=== PATIENT | male | born 1955 | race Caucasian/White ===

== ENCOUNTER 2023-10-21 16:28 | Inpatient (IN) | payer MEDICARE, MEDICAID ==
[2023-10-21] MEDS ORDERED: niCARdipine 25 MG/10 ML SDV ONE (16:33)
[2023-10-21] MEDS ORDERED: Dextrose 5% in Water 1,000 ML IV PRN (17:13)
[2023-10-21] MEDS ORDERED: Ondansetron ODT 4 MG TAB PO PRN (17:13)
[2023-10-21] MEDS ORDERED: Glucagon 1 MG/ML KIT IM PRN (17:13)
[2023-10-21] MEDS ORDERED: niCARdipine 40MG In NaCl 40 MG/200 ML BAG IVPB SCH (17:30)
[2023-10-21] MEDS: Insulin Regular 300 UNITS/3 ML VIAL SC SCH (18:43)
[2023-10-21] MEDS: niCARdipine 25 MG in Sodium Chloride 0.9% 250 ML 250 ML IVPB SCH ×2 (18:44→20:15)
[2023-10-21] MEDS ORDERED: Acetaminophen 650 MG Suppository PR PRN (19:15)
[2023-10-21] MEDS: Labetalol HCl 100 MG/20 ML VIAL SLOW IVP PRN (19:43)
[2023-10-21] MEDS: Acetaminophen 325 MG TAB PO PRN (19:44)
[2023-10-21 20:00] LABS: Hep C IgG Ab Reflex HepC Qnt S/CO (NonReactive); Hep C Index 16.07 S/CO (0-0.79)
[2023-10-21] MEDS: HumaLOG 300 UNITS/3 ML VIAL SC PRN (20:18)
[2023-10-21] MEDS: Morphine 2 MG/ML VIAL SLOW IVP PRN (22:17)
[2023-10-22] MEDS: Sodium Chloride 0.9% 1,000 ML IV SCH (00:09)
[2023-10-22 06:14] LABS: #Basophils 0.04 10x3/uL (0.0-0.2); %Basophils 0.5 % (0.0-1.0); %Eosinophils 1.4 % (0.0-10.0); %Lymphocytes 23.3 % (21.0-51.0); %Monocytes 5.3 % (0.0-10.0); %Neutrophils 69.3 % (42.0-75.0); Hematocrit 45.1 % (42.0-52.0); Hemoglobin 14.9 g/dL (14.0-18.0); Mean Corpuscular Volume 84.6 fL (78.0-98.0); Mean Platelet Volume 9.4 fL (7.4-10.4); Platelet Count 256 10x3/uL (130-400); RBC Distribution Width 13.8 % (11.5-14.5); Red Blood Cell (RBC) Count 5.33 mill/uL (4.70-6.10)
[2023-10-22 06:32] LABS: ALT (SGPT) 10 U/L (8-55); AST (SGOT) 12 U/L (5-34); Albumin 2.7 g/dL (3.4-4.8); Alkaline Phosphatase 89 U/L (40-110); Anion Gap 13 mmol/L (10-20); BUN (Urea Nitrogen) 18 mg/dL (8.4-25.7); Bilirubin, Total 0.4 mg/dL (0.2-1.2); Calc. Creatinine Clearance 92 mL/min (70-130); Calcium 8.7 mg/dL (7.8-10.44); Carbon Dioxide 24 mmol/L (23-31); Cardiac Risk 3.2 (Less than 4.5); Chloride 104 mmol/L (98-107); Cholesterol 105 mg/dl (< 200 Desired); Estimated GFR 98; Glucose 187 mg/dL (80-115); HDL Cholesterol 33 mg/dL (>60 Neg Risk); LDL Cholesterol, Calculated 62 mg/dL; Potassium 3.7 mmol/L (3.5-5.1); Protein, Total 6.7 g/dL (5.8-8.1); Sodium 137 mmol/L (136-145); Triglycerides 51 mg/dL (Less than 150)
[2023-10-22 06:43] LABS: Hemoglobin A1c 7.6 % (4.0-6.0)
[2023-10-22 07:20] VITALS: BMI 21.8
[2023-10-22] MEDS: HumaLOG 300 UNITS/3 ML VIAL SC PRN ×2 (09:09→12:49)
[2023-10-22] MEDS: hydrALAZINE 20 MG/ML VIAL SLOW IVP PRN ×2 (10:35→15:59)
[2023-10-22] MEDS ORDERED: NIFEdipine XL 30 MG ER.TAB PO SCH (11:45)
[2023-10-22] MEDS: Acetaminophen/Codeine 30-300mg Tablet PO PRN (12:08)
[2023-10-22] MEDS: Lisinopril 10 MG TAB PO SCH (14:16)
[2023-10-22] MEDS: Labetalol HCl 100 MG/20 ML VIAL SLOW IVP PRN (16:26)
[2023-10-22] MEDS: NIFEdipine XL 30 MG ER.TAB PO SCH (17:42)
[2023-10-22] MEDS: Melatonin 3 MG TAB PO PRN (20:27)
[2023-10-22] MEDS: Trospium 20 MG TAB PO SCH (20:27)
[2023-10-22] MEDS: Gabapentin 300 MG CAP PO SCH (20:27)
[2023-10-22] MEDS: metFORMIN XR 500 MG ER.TAB PO SCH (20:27)
[2023-10-22] MEDS: HumuLIN 70/30 100 Unit/ml 10 ml Vial SC SCH (20:34)
[2023-10-22] MEDS ORDERED: INSULN ASP SC SCH (21:00)
[2023-10-22] MEDS ORDERED: INSULIN ASPART PROT SC SCH (21:00)
[2023-10-22] MEDS ORDERED: [UNRECOGNIZED DRUG - OTHER] SC SCH (21:00)
[2023-10-23 05:31] VITALS: BMI 22.1
[2023-10-23] MEDS: HumuLIN 70/30 100 Unit/ml 10 ml Vial SC SCH (08:35)
[2023-10-23] MEDS: Finasteride 5 MG TAB PO SCH (08:35)
[2023-10-23] MEDS: Atorvastatin Calcium 10 MG TAB PO SCH (08:36)
[2023-10-23] MEDS ORDERED: Lisinopril 20 MG TAB PO SCH ×2 (09:00)
[2023-10-23] MEDS ORDERED: NIFEdipine XL 30 MG ER.TAB PO SCH (09:00)
[2023-10-23] MEDS: NIFEdipine XL 30 MG ER.TAB PO SCH (10:56)
[2023-10-23] MEDS: Polyethylene Glycol 3350 17 GM Packet PO SCH (10:56)
[2023-10-23] MEDS: Lisinopril 20 MG TAB PO SCH (10:57)
[2023-10-24] MEDS: Dextrose 50% Abboject 50 ML SYRINGE SLOW IVP PRN (05:19)
[2023-10-24] MEDS: NIFEdipine XL 60 MG ER.TAB PO SCH (07:45)
[2023-10-24] MEDS: Lisinopril 20 MG TAB PO SCH ×2 (07:46→08:28)
[2023-10-24] MEDS: Polyethylene Glycol 3350 17 GM Packet PO SCH (07:47)
[2023-10-24] MEDS ORDERED: Lisinopril 20 MG TAB PO SCH (09:00)
[2023-10-24] MEDS: HumuLIN 70/30 100 Unit/ml 10 ml Vial SC SCH ×2 (10:52→20:03)
[2023-10-24 11:07] LABS: Hemoglobin 16.9 g/dL (14.0-18.0)
[2023-10-24] MEDS ORDERED: traZODone HCl 150 MG TAB PO SCH (19:00)
[2023-10-24] MEDS: traZODone HCl 150 MG TAB PO SCH (20:02)
[2023-10-25 07:30] VITALS: TEMP 98.2
[2023-10-25 12:23] VITALS: BP 131/77
== END 2023-10-25 14:50 | disposition home or self-care (01) | DRG 66 ==
LOC: ERS 16:28 → CCU 17:12 → T4-A 10-22 13:57
PROVIDERS: ADMIT Family Medicine; ATTEND Family Medicine
DX: I62.01 Nontraumatic acute subdural hemorrhage (principal); B19.20 Unspecified viral hepatitis C without hepatic coma; I10 Essential (primary) hypertension; E78.5 Hyperlipidemia, unspecified; Z98.890 Other specified postprocedural states; F17.210 Nicotine dependence, cigarettes, uncomplicated; E11.65 Type 2 diabetes mellitus with hyperglycemia; I16.0 Hypertensive urgency; E11.649 Type 2 diabetes mellitus with hypoglycemia without coma
CPT/HCPCS: 36415; 36416; 70450; 80053; 80061; 83036; 85014; 85018; 85025; 86803; 96365; J0360; J1815; J2272; J7050; J7999